=== PATIENT | female | born 1980 | race Two or more races ===

== ENCOUNTER 2021-02-04 23:20 | Emergency (ER) | payer SELFPAY ==
[~2021-02-04] VITALS: Ht 170.2 cm; Wt 74.8 kg
[2021-02-04 23:50] VITALS: BP 115/65
== END 2021-02-05 04:44 | disposition home or self-care (01) ==
LOC: ER 23:22 → EDBD 23:22 → ER 02-05 04:44
DX: Z02.89 Encounter for other administrative examinations (principal); F10.129 Alcohol abuse with intoxication, unspecified; Y90.9 Presence of alcohol in blood, level not specified; Z60.2 Problems related to living alone